=== PATIENT | female | born 1990 | race African-American/Black ===

== ENCOUNTER 2018-07-05 16:27 | Emergency (ER) | payer BC ==
[~2018-07-05] VITALS: Ht 175.3 cm; Wt 63.5 kg
[2018-07-05 16:36] VITALS: BP 116/73
--- NOTE | 2018-07-05 17:04 | Emergency Room Report ---
History of Present Illness General Chief Complaint: Skin Rash/Abscess Source: Patient Present Illness HPI 28-year-old female presents to the emergency department complaining of 8 out of 10 in severity pain in the right upper shoulder/neck area that radiates down into the right arm 5 days. Patient reports feeling "tightness "in the neck/ shoulder area. She states that she has been working out regular leave this past week but the last 3 days has not done anything besides legs/ stairs. Patient denies previous injury to this extremity or her neck/back. she denies trauma or fall.Denies numbness tingling or loss of sensation or gross motor movements of the extremities, Denies CP, Palpitations, LOC, AMS, dizziness, weakness or a sudden severe headache. Pain worse with raising right arm. no relieving factors. Denies hx of STD's or genital lesions in the past. Allergies: Coded Allergies: No Known Allergies (Unverified , 07/05/18) Patient History Past Medical History: see triage record Past Surgical History: none Pertinent Family History: none Now: No Reviewed Nursing Documentation: PMH: Agreed; PSxH: Agreed Nursing Documentation-PMH Past Medical History: No Stated History Review of Systems All Other Systems: negative except mentioned in HPI Physical Exam Vital Signs Date Time Temp Pulse Resp B/P (MAP) Pulse Ox O2 Delivery O2 Flow Rate FiO2 07/05/18 16:31 97.9 79 18 116/73 98 Room Air Sp02 EP Interpretation: reviewed, normal General Appearance: no apparent distress, alert, GCS 15, non-toxic Head: normocephalic, atraumatic Eyes: bilateral eye normal inspection, bilateral eye PERRL ENT: hearing grossly normal, no angioedema, normal voice, other - no stridor Neck: full range of motion Respiratory: lungs clear, normal breath sounds, no wheezing, speaking full sentences Cardiovascular #1: regular rate, rhythm, no edema Gastrointestinal: non tender, soft Musculoskeletal: back normal, gait/station normal, normal range of motion, non- tender Neurologic: alert, oriented x3, responsive, motor strength/tone normal, sensory intact, speech normal, grossly normal Psychiatric: judgement/insight normal Skin: normal color, warm/dry, well hydrated, rash - small plaques scattered in no apparent distribution on abdomen, back and inner thighs, - scant-mild amount of lesions, no vessicles, no blisters, no sloughing of the skin. Lymphatic: no adenopathy Medical Decision Making PA Attestation Dr. singh is my supervising Physician whom patient management has been discussed with. Diagnostic Impression: Primary Impression: Rash and other nonspecific skin eruption ER Course 28-year-old female presents to the emergency department complaining of 8 out of 10 in severity pain in the right upper shoulder/neck area that radiates down into the right arm 5 days. Patient reports feeling "tightness "in the neck/ shoulder area. She states that she has been working out regular leave this past week but the last 3 days has not done anything besides legs/ stairs. Patient denies previous injury to this extremity or her neck/back. she denies trauma or fall.Denies numbness tingling or loss of sensation or gross motor movements of the extremities, Denies CP, Palpitations, LOC, AMS, dizziness, weakness or a sudden severe headache. Pain worse with raising right arm. no relieving factors. Denies hx of STD's or genital lesions in the past. Ddx considered but are not limited to cellulitis, scabies, shingles, varicella, dermatitis, urticaria, eczema, tinea, syphilis, viral exanthem, SJS Vital signs: are WNL, pt. is afebrile H&PE are most consistent with non-specific rash, not suspicious for viral exanthem ORDERS: none required at this time, the diagnosis is clinical ED INTERVENTIONS: None required at this time. DISCHARGE: At this time pt. is stable for d/c to home. Will provide printed patient care instructions, and any necessary prescriptions. Care plan and follow up instructions have been discussed with the patient prior to discharge. Last Vital Signs Date Time Temp Pulse Resp B/P (MAP) Pulse Ox O2 Delivery O2 Flow Rate FiO2 07/05/18 16:36 97.9 79 18 116/73 98 Room Air Disposition: HOME, SELF-CARE Condition: Stable Scripts Bacitracin/Polymyxin B Sulfate (BACITRACIN-POLYMYXIN OINTMENT) 28.35 Gm Oint...g. 1 APPLIC TP BID, #28.3 GM Prov: Christina Macario 07/05/18 Cephalexin* (KEFLEX*) 500 Mg Capsule 500 MG ORAL EVERY 12 HOURS for 7 Days, #14 CAP 0 Refills Prov: Christina Macario 07/05/18 Diphenhydramine Hcl (BENADRYL ALLERGY) 25 Mg Tablet 25 MG PO Q6HR, #20 TAB Prov: Christina Macario 07/05/18 Prednisone* (PREDNISONE*) 20 Mg Tablet 20 MG ORAL DAILY for 5 Days, #5 TAB 0 Refills Prov: Christina Macario 07/05/18 Referrals: NOT CHOSEN IPA/MD,REFERRING (PCP) Patient Instructions: Rash Additional Instructions: Take medications as directed. Follow up with a Primary Care Provider in 3-5 days for DERMATOLOGY REFERRAL , even if your symptoms have resolved. --Please review list of primary care clinics, if you do not already have a primary care provider Return sooner to ED if new symptoms occur, or current symptoms become worse. Do not drink alcohol, drive, or operate heavy machinery while taking benadryl as this may cause drowsiness. - Please note that this Emergency Department Report was dictated using [employer] rep technology software, occasionally this can lead to erroneous entry secondary to interpretation by the dictation equipment. Christina Macario Jul 05, 2018 17:04
[2018-07-05] MEDS ORDERED: CEPHALEXIN500 MG ORAL (17:05)
[2018-07-05] MEDS ORDERED: BENADRYL ALLERG25 M1 PO (17:05)
[2018-07-05] MEDS ORDERED: PREDNISONE20 MG ORAL (17:05)
[2018-07-05] MEDS ORDERED: BACITRACIN-P28.35 GM TP (17:05)
[2018-07-05 17:15] VITALS: BP 133/86
== END 2018-07-05 17:15 | disposition home or self-care (01) ==
LOC: EMR 16:44
DX: R21 Rash and other nonspecific skin eruption (principal)
CPT/HCPCS: 99283